=== PATIENT | female | born 1985 | race Caucasian/White ===

== ENCOUNTER 2017-07-14 20:10 | Emergency (ER) | payer MEDICAID ==
[~2017-07-14] VITALS: Ht 167.6 cm; Wt 72.6 kg
[2017-07-14 20:20] VITALS: BP 112/76
[2017-07-14 21:22] LABS: EOSINOPHILS % (AUTO) 1.5 % (0.0-3.0); LYMPHOCYTES % (AUTO) 29.7 % (20.0-45.0); MEAN CORPUSCULAR HGB CONC 34.3 G/DL (32.0-36.0); MEAN CORPUSCULAR VOLUME 99 FL (80-99); MEAN PLATELET VOLUME 7.7 FL (6.5-10.1); MONOCYTES % (AUTO) 6.7 % (1.0-10.0); NEUTROPHILS % (AUTO) 61.1 % (45.0-75.0); PLATELET COUNT 238 K/UL (150-450); RED BLOOD COUNT 4.04 M/UL (4.20-5.40); RED CELL DISTRIBUTION WIDTH 12.3 % (11.6-14.8); WHITE BLOOD COUNT 10.9 K/UL (4.8-10.8)
[2017-07-14 21:28] LABS: APPEARANCE,URINE CLEAR; KETONES,URINE NEGATIVE (NEGATIVE); LEUKOCYTE ESTERASE ,URINE 1+ (NEGATIVE); NITRITE,URINE NEGATIVE (NEGATIVE); PH,URINE 6 (4.5-8.0); PROTEIN,URINE NEGATIVE (NEGATIVE); UROBILINOGEN,URINE NORMAL MG/DL (0.0-1.0)
[2017-07-14 21:51] LABS: BACTERIA,URINE OCCASIONAL /HPF; RBC,URINE 0-2 /HPF (0 - 2); SQUAMOUS EPITHELIAL CELL,UR MANY /LPF (NONE/OCC); WBC,URINE 0-2 /HPF (0 - 2)
[2017-07-14 21:56] LABS: ACETAMINOPHEN < 10 ug/mL (10-30); ALANINE AMINOTRANSFERASE 24 U/L (3-33); ALBUMIN/GLOBULIN RATIO 1.6 (1.0-2.7); ALCOHOL < 10 mg/dL; ANION GAP 14 (5-15); ASPARTATE AMINO TRANSFERASE 23 U/L (5-40); CALCIUM 10.7 mg/dL (8.6-10.2); CARBON DIOXIDE 26 mEQ/L (20-30); CHLORIDE 99 mEQ/L (98-107); CREATININE 0.9 mg/dL (0.5-0.9); GLOMERULAR FILTRATION RATE > 60 mL/min (>60); HEMOLYSIS 0; POTASSIUM 3.4 mEQ/L (3.4-4.9); SODIUM 139 mEQ/L (135-145); TOTAL PROTEIN 7.6 g/dL (6.6-8.7)
--- NOTE | 2017-07-14 22:29 | Emergency Room Report ---
History of Present Illness General Chief Complaint: Behavioral Complaint Source: Patient Present Illness HPI 31-year-old female presents to ED for evaluation. Patient brought in by ambulance stating that she was to hurt herself. Tried to jump into traffic today the was pulled back by a bystander. Patient states she has history of depression but is not taking her medication in several months. Has been self- medicating with drugs and alcohol. Patient denies hearing voices. Patient states she is considered suicide in the past but has never attempted until today. She got very scared and called 911. Currently patient states she wants to hurt herself. Denies chest pain shortness of breath. No other aggravating relieving factors. Denies any other associated symptoms Allergies: Coded Allergies: No Known Allergies (Unverified , 07/14/17) Patient History Past Medical History: psych hx Past Surgical History: none Pertinent Family History: none Social History: Reports: alcohol use, drug use, Denies: smoking Last Menstrual Period: "doesnt get periods" Now: No Immunizations: UTD Reviewed Nursing Documentation: PMH: Agreed, PSxH: Agreed Nursing Documentation-PMH Past Medical History: No History, Except For History Of Psychiatric Problem: Yes - depression, anxiety,bipolar Review of Systems All Other Systems: negative except mentioned in HPI Physical Exam Vital Signs Date Time Temp Pulse Resp B/P (MAP) Pulse Ox O2 Delivery O2 Flow Rate FiO2 07/14/17 20:06 98.4 78 16 108/68 99 Room Air Sp02 EP Interpretation: reviewed, normal General Appearance: no apparent distress, alert, GCS 15, non-toxic Head: normocephalic, atraumatic Eyes: bilateral eye normal inspection, bilateral eye PERRL ENT: hearing grossly normal, normal pharynx, no angioedema, normal voice Neck: full range of motion, supple/symm/no masses Respiratory: chest non-tender, lungs clear, normal breath sounds, speaking full sentences Cardiovascular #1: regular rate, rhythm, no edema Cardiovascular #2: 2+ carotid (R), 2+ carotid (L), 2+ radial (R), 2+ radial (L) , 2+ dorsalis pedis (R), 2+ dorsalis pedis (L) Gastrointestinal: normal bowel sounds, non tender, soft, non-distended, no guarding, no rebound Rectal: deferred Genitourinary: normal inspection, no CVA tenderness Musculoskeletal: back normal, gait/station normal, normal range of motion, non- tender Neurologic: alert, oriented x3, responsive, motor strength/tone normal, sensory intact, speech normal Psychiatric: depressed affect, anxious Suicide Risk Assessment: Suicidal Ideation: Yes Had intent to initiate attempt: Yes Pt's plan for suicide attempt: Yes Has means to complete attempt: Yes Reflexes: 3+ bicep (R), 3+ bicep (L), 3+ tricep (R), 3+ tricep (L), 3+ knee (R) , 3+ knee (L) Skin: normal color, no rash, warm/dry, well hydrated Lymphatic: no adenopathy Medical Decision Making Diagnostic Impression: Primary Impression: Depression with suicidal ideation Additional Impression: Substance abuse ER Course Hospital Course 31-year-old female presents to ED for suicidal ideation. tried to jump into traffic today Differential diagnoses include: Major depressive disorder, unspecified psychosis , EtOH abuse, drug abuse Clinical course Patient placed on stretcher. On one to one observation. After initial history and physical I ordered labs, U. tox Labs-electrolytes normal, aspirin/Tylenol levels normal, EtOH level normal, U. tox +THC Patient is medically cleared and pending psychiatric evaluation. i. I feel this is a highly complex case requiring extensive working including EKG/Rhythm strip, Xray/CT/US, Blood/urine lab work, repeat exams while in ED, and administration of strong opiates/narcotics for pain control, admission to hospital or close patient follow up. Labs Test 07/14/17 21:00 White Blood Count 10.9 K/UL (4.8-10.8) Red Blood Count 4.04 M/UL (4.20-5.40) Hemoglobin 13.7 G/DL (12.0-16.0) Hematocrit 40.1 % (37.0-47.0) Mean Corpuscular Volume 99 FL (80-99) Mean Corpuscular Hemoglobin 34.0 PG (27.0-31.0) Mean Corpuscular Hemoglobin Concent 34.3 G/DL (32.0-36.0) Red Cell Distribution Width 12.3 % (11.6-14.8) Platelet Count 238 K/UL (150-450) Mean Platelet Volume 7.7 FL (6.5-10.1) Neutrophils (%) (Auto) 61.1 % (45.0-75.0) Lymphocytes (%) (Auto) 29.7 % (20.0-45.0) Monocytes (%) (Auto) 6.7 % (1.0-10.0) Eosinophils (%) (Auto) 1.5 % (0.0-3.0) Basophils (%) (Auto) 1.0 % (0.0-2.0) Urine Color Pale yellow Urine Appearance Clear Urine pH 6 (4.5-8.0) Urine Specific [place] 1.010 (1.005-1.035) Urine Protein Negative (NEGATIVE) Urine Glucose (UA) Negative (NEGATIVE) Urine Ketones Negative (NEGATIVE) Urine Occult Blood Negative (NEGATIVE) Urine Nitrite Negative (NEGATIVE) Urine Bilirubin Negative (NEGATIVE) Urine Urobilinogen Normal MG/DL (0.0-1.0) Urine Leukocyte Esterase 1+ (NEGATIVE) Urine RBC 0-2 /HPF (0 - 2) Urine WBC 0-2 /HPF (0 - 2) Urine Squamous Epithelial Cells Many /LPF (NONE/OCC) Urine Bacteria Occasional /HPF (NONE) Urine HCG, Qualitative Negative Sodium Level 139 mEQ/L (135-145) Potassium Level 3.4 mEQ/L (3.4-4.9) Chloride Level 99 mEQ/L (98-107) Carbon Dioxide Level 26 mEQ/L (20-30) Anion Gap 14 (5-15) Blood Urea Nitrogen 11 mg/dL (7-23) Creatinine 0.9 mg/dL (0.5-0.9) Estimat Glomerular Filtration Rate > 60 mL/min (>60) Glucose Level 90 mg/dL (74-106) Calcium Level 10.7 mg/dL (8.6-10.2) Total Bilirubin 0.4 mg/dL (0.0-1.2) Aspartate Amino Transf (AST/SGOT) 23 U/L (5-40) Alanine Aminotransferase (ALT/SGPT) 24 U/L (3-33) Alkaline Phosphatase 49 U/L (35-104) Total Protein 7.6 g/dL (6.6-8.7) Albumin 4.7 g/dL (3.5-5.2) Globulin 2.9 g/dL Albumin/Globulin Ratio 1.6 (1.0-2.7) Salicylates Level < 1 mg/dL (10-30) Urine Opiates Screen Negative (NEGATIVE) Acetaminophen Level < 10 ug/mL (10-30) Urine Barbiturates Screen Negative (NEGATIVE) Phencyclidine (PCP) Screen Negative (NEGATIVE) Urine Amphetamines Screen Negative (NEGATIVE) Urine Benzodiazepines Screen Negative (NEGATIVE) Urine Cocaine Screen Negative (NEGATIVE) Urine Marijuana (THC) Screen Positive (NEGATIVE) Serum Alcohol < 10 mg/dL Last Vital Signs Date Time Temp Pulse Resp B/P (MAP) Pulse Ox O2 Delivery O2 Flow Rate FiO2 07/14/17 20:06 98.4 78 16 108/68 99 Room Air Status: improved Disposition: XFER SHT-TRM HOSP Condition: Serious IBRAHIMA FLORES M.D. Jul 14, 2017 22:29
[2017-07-14 22:30] VITALS: BP 118/76
[2017-07-15] VITALS (7 sets, daily range): BP systolic 114–127; BP diastolic 69–78
[2017-07-15] MEDS ORDERED: NKM (00:25)
--- NOTE | 2017-07-15 12:50 | Consultation ---
Consultation HPI 31 yo female with hx of mdd and alcohol use admitted to er with amanda hannon with intention to od the pt stated that she has been suffering from depression last seen a psychiatrist 2 years ago and has not been on meds. she has been self medicating with meth and alcohol/ family are distant and dishonored her. her family would not assist her. 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 the pt has cluster b traits and is labile. target sxs: irritable mood, anxiety, decrease energy, poor sleep, suicidal ideation. Allergies: Coded Allergies: No Known Allergies (Unverified , 07/14/17) Past Medical History none General Appearance: Fairly Groomed, Stated Age Orientation: Time, Place, Person, Situation Attention Span Description: Good Mood/Memory: Angry Affect: Full Range Thought Process: Linear Thought Content: Suicidal Ideation Speech: Normal in Volume & Rate Intelligence: Average Insight/ Judgement: Fair Impulse Control: Fair Assessment/Plan Status: not improved Assessment/Plan mdd. imminent dts -transfer to psych -voluntary Magaly Kee M.D. Jul 15, 2017 12:50
[2017-07-15] MEDS ORDERED: LORazepam 1mg tab ORAL ONE (14:00)
== END 2017-07-15 15:51 | disposition short-term general hospital (02) ==
LOC: EDBD 20:10 → EMR 20:29
DX: F32.9 Major depressive disorder, single episode, unspecified (principal); R45.851 Suicidal ideations; F19.10 Other psychoactive substance abuse, uncomplicated; F41.9 Anxiety disorder, unspecified
CPT/HCPCS: 36415; 80053; 80300; 80329; 81003; 81025; 85025; 99285

== ENCOUNTER 2017-07-22 14:36 | Emergency (ER) | payer MEDICAID ==
[~2017-07-22] VITALS: Ht 167.6 cm; Wt 72.6 kg
[~2017-07-22 14:36] MED LIST: NKM
[2017-07-22] MEDS ORDERED: LORazepam 1mg tab ORAL ONE (15:45)
[2017-07-22 16:33] LABS: BASOPHILS % (AUTO) 1.4 % (0.0-2.0); EOSINOPHILS % (AUTO) 0.5 % (0.0-3.0); MEAN CORPUSCULAR HGB CONC 34.7 G/DL (32.0-36.0); MEAN CORPUSCULAR VOLUME 98 FL (80-99); MEAN PLATELET VOLUME 7.9 FL (6.5-10.1); MONOCYTES % (AUTO) 5.9 % (1.0-10.0); NEUTROPHILS % (AUTO) 70.1 % (45.0-75.0); PLATELET COUNT 253 K/UL (150-450); RED BLOOD COUNT 4.24 M/UL (4.20-5.40); RED CELL DISTRIBUTION WIDTH 12.2 % (11.6-14.8); WHITE BLOOD COUNT 7.9 K/UL (4.8-10.8)
[2017-07-22 16:49] LABS: ACETAMINOPHEN < 10 ug/mL (10-30); ALANINE AMINOTRANSFERASE 23 U/L (3-33); ALBUMIN/GLOBULIN RATIO 1.7 (1.0-2.7); ALCOHOL < 10 mg/dL; ANION GAP 14 (5-15); ASPARTATE AMINO TRANSFERASE 21 U/L (5-40); CALCIUM 9.2 mg/dL (8.6-10.2); CARBON DIOXIDE 25 mEQ/L (20-30); CHLORIDE 102 mEQ/L (98-107); CREATININE 0.8 mg/dL (0.5-0.9); GLOMERULAR FILTRATION RATE > 60 mL/min (>60); HEMOLYSIS 7; POTASSIUM 3.9 mEQ/L (3.4-4.9); SODIUM 141 mEQ/L (135-145); TOTAL PROTEIN 7.8 g/dL (6.6-8.7)
[2017-07-22 17:30] VITALS: BP 108/71
[2017-07-22 19:30] VITALS: BP 110/75
[2017-07-22 22:35] VITALS: BP 112/76
--- NOTE | 2017-07-22 22:47 | Emergency Room Report ---
History of Present Illness General Chief Complaint: Behavioral Complaint Source: Patient (Dyan Olivares) Present Illness HPI 31-year-old female presents to the emergency department complaining of increasing her depression and having suicidal ideations due to her persistent anxiety attacks. Patient states that she was released from psychiatric hospital on Geodon and Vistaril. Patient states that she continues to have increased anxiety and believes that her anxiety is in fact worsened by these medications. Patient states that she is having multiple attacks per day and feeling overwhelmed as if she cannot breathe. Patient states that she began having thoughts of taking all of her medications so she came to the emergency department for evaluation and perhaps change of medications. She reports one prior suicide attempt which was earlier this month. Patient states that she has been taking medications as prescribed except for taking Geodon today. Patient does report marijuana use. Patient denies use of other illicit drugs. Patient also reports EtOH use. Patient reports family history of depression. Patient denies intent to harm others. Patient denies manic symptoms, history of trauma, auditory or visual hallucinations. Denies CP, Palpitations, LOC, AMS , dizziness, Changes in Vision, Sensation, paresthesias, or a sudden severe headache. (Dyan Olivares) Allergies: Coded Allergies: No Known Allergies (Unverified , 07/14/17) Patient History Past Medical History: see triage record, psych hx Past Surgical History: none Pertinent Family History: none Last Menstrual Period: bcp Now: No Immunizations: UTD Reviewed Nursing Documentation: PMH: Agreed, PSxH: Agreed (Dyan Olivares) Nursing Documentation-PMH Past Medical History: No History, Except For History Of Psychiatric Problem: Yes - bipolar, depression, anxiety (Dyan Olivares) Review of Systems All Other Systems: negative except mentioned in HPI (Dyan Olivares) Physical Exam Vital Signs Date Time Temp Pulse Resp B/P (MAP) Pulse Ox O2 Delivery O2 Flow Rate FiO2 07/22/17 14:43 98.4 97 18 113/62 98 Room Air Sp02 EP Interpretation: reviewed, normal General Appearance: no apparent distress, alert, GCS 15, non-toxic Head: normocephalic, atraumatic Eyes: bilateral eye normal inspection, bilateral eye PERRL ENT: hearing grossly normal, normal voice Neck: full range of motion Respiratory: lungs clear, normal breath sounds, speaking full sentences Cardiovascular #1: regular rate, rhythm Gastrointestinal: normal bowel sounds, non tender, soft, no guarding, no rebound Rectal: deferred Genitourinary: normal inspection, no CVA tenderness Musculoskeletal: back normal, gait/station normal, normal range of motion, non- tender Neurologic: alert, oriented x3, responsive, motor strength/tone normal, sensory intact, cerebellar normal, normal gait, speech normal Psychiatric: judgement/insight normal, memory normal, depressed affect - pt is tearful on occasion., anxious - pt. is restless, Skin: normal color, no rash, warm/dry, well hydrated Lymphatic: no adenopathy (Dyan Olivares) Medical Decision Making PA Attestation Dr. Xiong is my supervising Physician whom patient management has been discussed with. (Dyan Olivares) Diagnostic Impression: Primary Impression: Behavioral disorder ER Course 31-year-old female presents to the emergency department complaining of increasing her depression and having suicidal ideations due to her persistent anxiety attacks. Patient states that she was released from psychiatric hospital on Geodon and Vistaril. Patient states that she continues to have increased anxiety and believes that her anxiety is in fact worsened by these medications. Patient states that she is having multiple attacks per day and feeling overwhelmed as if she cannot breathe. Patient states that she began having thoughts of taking all of her medications so she came to the emergency department for evaluation and perhaps change of medications. She reports one prior suicide attempt which was earlier this month. Patient states that she has been taking medications as prescribed except for taking Geodon today. Patient does report marijuana use. Patient denies use of other illicit drugs. Patient also reports EtOH use. Patient reports family history of depression. Patient denies intent to harm others. Patient denies manic symptoms, history of trauma, auditory or visual hallucinations. Denies CP, Palpitations, LOC, AMS , dizziness, Changes in Vision, Sensation, paresthesias, or a sudden severe headache. Pt has depressed affect with intermittent tearfulness. pt. also demonstrates anxiety and restlessness. Ddx considered but are not limited to OD, SI/HI, psychosis, UTI, intoxication Vital signs: are WNL, pt. is afebrile H&PE are most consistent with behavioral/mental health issue: anxiety and depression. ORDERS: -CBC, CMP -UA: negative for infection see results attached. -UDS: Positive for THC. -Salicylates and Acetaminophen - no acute intoxication. ED INTERVENTIONS: - 1mg Ativan PO - 1 mg Risperdal PO DISPOSITION: Pt. has been cleared medically and is awaiting psychiatric consult. -Pt. will possibly to to [facility] on voluntary basis. Labs Test 07/22/17 14:53 07/22/17 15:56 Urine Opiates Screen Negative (NEGATIVE) Urine Barbiturates Screen Negative (NEGATIVE) Phencyclidine (PCP) Screen Negative (NEGATIVE) Urine Amphetamines Screen Negative (NEGATIVE) Urine Benzodiazepines Screen Negative (NEGATIVE) Urine Cocaine Screen Negative (NEGATIVE) Urine Marijuana (THC) Screen Positive (NEGATIVE) White Blood Count 7.9 K/UL (4.8-10.8) Red Blood Count 4.24 M/UL (4.20-5.40) Hemoglobin 14.4 G/DL (12.0-16.0) Hematocrit 41.5 % (37.0-47.0) Mean Corpuscular Volume 98 FL (80-99) Mean Corpuscular Hemoglobin 34.0 PG (27.0-31.0) Mean Corpuscular Hemoglobin Concent 34.7 G/DL (32.0-36.0) Red Cell Distribution Width 12.2 % (11.6-14.8) Platelet Count 253 K/UL (150-450) Mean Platelet Volume 7.9 FL (6.5-10.1) Neutrophils (%) (Auto) 70.1 % (45.0-75.0) Lymphocytes (%) (Auto) 22.0 % (20.0-45.0) Monocytes (%) (Auto) 5.9 % (1.0-10.0) Eosinophils (%) (Auto) 0.5 % (0.0-3.0) Basophils (%) (Auto) 1.4 % (0.0-2.0) Sodium Level 141 mEQ/L (135-145) Potassium Level 3.9 mEQ/L (3.4-4.9) Chloride Level 102 mEQ/L (98-107) Carbon Dioxide Level 25 mEQ/L (20-30) Anion Gap 14 (5-15) Blood Urea Nitrogen 10 mg/dL (7-23) Creatinine 0.8 mg/dL (0.5-0.9) Estimat Glomerular Filtration Rate > 60 mL/min (>60) Glucose Level 94 mg/dL (74-106) Calcium Level 9.2 mg/dL (8.6-10.2) Total Bilirubin < 0.2 mg/dL (0.0-1.2) Aspartate Amino Transf (AST/SGOT) 21 U/L (5-40) Alanine Aminotransferase (ALT/SGPT) 23 U/L (3-33) Alkaline Phosphatase 53 U/L (35-104) Total Protein 7.8 g/dL (6.6-8.7) Albumin 5.0 g/dL (3.5-5.2) Globulin 2.8 g/dL Albumin/Globulin Ratio 1.7 (1.0-2.7) Salicylates Level < 1 mg/dL (10-30) Acetaminophen Level < 10 ug/mL (10-30) Serum Alcohol < 10 mg/dL (Dyan Olviares P.AAlen) ER Course See above evaluation by Ms. Olivares. Patient slept through night. In am states still feels awful - anxious and heart pounding. I offered usual meds and she agreed. Then she refused Geodon as "it doesn't work". Lexapro given. Dr. Kee evaluated patient and felt safe to d/c with meds (Lexapro and Remeron). Patient stable for outpatient observation and treatment. (Derick López M.D.) Last Vital Signs Date Time Temp Pulse Resp B/P (MAP) Pulse Ox O2 Delivery O2 Flow Rate FiO2 07/22/17 17:30 98.9 64 18 108/71 98 Room Air (Dyan Olivares P.A.) Last Vital Signs Date Time Temp Pulse Resp B/P (MAP) Pulse Ox O2 Delivery O2 Flow Rate FiO2 07/23/17 11:51 97.7 71 17 107/70 100 Room Air Status: improved (Derick López M.D.) Disposition: HOME, SELF-CARE Condition: Improved Scripts Mirtazapine* (REMERON*) 15 Mg Tablet 7.5 MG ORAL BEDTIME, #15 TAB take 1/2 tab of 15 mg tablet at night for sleep. Prov: Derick óLpez M.D. 07/23/17 Escitalopram Oxalate* (LEXAPRO*) 10 Mg Tablet 10 MG ORAL DAILY, #30 TAB Prov: Deirck López M.D. 07/23/17 Referrals: MARÍAREFERRING (PCP) Dyan Olivares Jul 22, 2017 22:47 Derick López M.D. Jul 23, 2017 11:03
[2017-07-23 01:00] VITALS: BP 110/68
[2017-07-23 05:24] VITALS: BP 108/72
[2017-07-23] MEDS ORDERED: Ziprasidone 20mg cap ORAL ONE (09:00)
[2017-07-23] MEDS ORDERED: LORazepam 1mg tab ORAL ONE (09:00)
--- NOTE | 2017-07-23 10:28 | Consultation ---
History of Present Illness General Chief Complaint: Behavioral Complaint Present Illness HPI 31-year-old female presents to the emergency department complaining of increasing her depression,and anxiety. the pt came and stated that she is suicidal. the pt is well known to this MD. the pt came last week we transferred the pt to [facility]. the pt did not have a good experience with [facility] and does not want to go there. the pt is not endorsing suicidal ideation. the pt stated that she has relapsed on drugs and alcohol. the pt stated that at [facility] she did not see a psychiatrist and only saw an [employer]ACT[employer] SUPERVISOR. Sulaiman diagnosed her with bipolar d/o and gave her geodone which made her worse. the pt was given risperdal and lexapro. the pt is feeling better. the pt has anxiety and insomnia. the pt has future oriented thought process. the pt stated that "I need to get better and move one." Allergies: Coded Allergies: No Known Allergies (Unverified , 07/14/17) Medication History Scheduled No Known Medications* (NKM - No Known Medications*), 0 ., (Reported) Patient History History Provided By: Patient, Medical Record, PMD Healthcare decision maker Resuscitation status Advanced Directive on File Past Medical/Surgical History Past Medical/Surgical History: (1) Behavioral disorder Review of Systems Psychiatric: Reports: prior hx, anxiety, depressed feelings, emotional problems Physical Exam General Appearance: no apparent distress, alert Neurologic: alert, oriented x 3, responsive, depressed affect Last 24 Hour Vital Signs Date Time Temp Pulse Resp B/P (MAP) Pulse Ox O2 Delivery O2 Flow Rate FiO2 07/23/17 05:24 97.7 74 18 108/72 100 Room Air 07/23/17 01:00 97.7 71 18 110/68 100 Room Air 07/22/17 22:35 97.6 85 18 112/76 100 Room Air 07/22/17 19:30 98.2 72 16 110/75 99 Room Air 07/22/17 17:30 98.9 64 18 108/71 98 Room Air 07/22/17 14:43 98.4 97 18 113/62 98 Room Air Laboratory Tests Test 07/22/17 14:53 07/22/17 15:56 Urine Opiates Screen Negative (NEGATIVE) Urine Barbiturates Screen Negative (NEGATIVE) Phencyclidine (PCP) Screen Negative (NEGATIVE) Urine Amphetamines Screen Negative (NEGATIVE) Urine Benzodiazepines Screen Negative (NEGATIVE) Urine Cocaine Screen Negative (NEGATIVE) Urine Marijuana (THC) Screen Positive (NEGATIVE) H White Blood Count 7.9 K/UL (4.8-10.8) Red Blood Count 4.24 M/UL (4.20-5.40) Hemoglobin 14.4 G/DL (12.0-16.0) Hematocrit 41.5 % (37.0-47.0) Mean Corpuscular Volume 98 FL (80-99) Mean Corpuscular Hemoglobin 34.0 PG (27.0-31.0) H Mean Corpuscular Hemoglobin Concent 34.7 G/DL (32.0-36.0) Red Cell Distribution Width 12.2 % (11.6-14.8) Platelet Count 253 K/UL (150-450) Mean Platelet Volume 7.9 FL (6.5-10.1) Neutrophils (%) (Auto) 70.1 % (45.0-75.0) Lymphocytes (%) (Auto) 22.0 % (20.0-45.0) Monocytes (%) (Auto) 5.9 % (1.0-10.0) Eosinophils (%) (Auto) 0.5 % (0.0-3.0) Basophils (%) (Auto) 1.4 % (0.0-2.0) Sodium Level 141 mEQ/L (135-145) Potassium Level 3.9 mEQ/L (3.4-4.9) Chloride Level 102 mEQ/L (98-107) Carbon Dioxide Level 25 mEQ/L (20-30) Anion Gap 14 (5-15) Blood Urea Nitrogen 10 mg/dL (7-23) Creatinine 0.8 mg/dL (0.5-0.9) Estimat Glomerular Filtration Rate > 60 mL/min (>60) Glucose Level 94 mg/dL (74-106) Calcium Level 9.2 mg/dL (8.6-10.2) Total Bilirubin < 0.2 mg/dL (0.0-1.2) Aspartate Amino Transf (AST/SGOT) 21 U/L (5-40) Alanine Aminotransferase (ALT/SGPT) 23 U/L (3-33) Alkaline Phosphatase 53 U/L (35-104) Total Protein 7.8 g/dL (6.6-8.7) Albumin 5.0 g/dL (3.5-5.2) Globulin 2.8 g/dL Albumin/Globulin Ratio 1.7 (1.0-2.7) Salicylates Level < 1 mg/dL (10-30) L Acetaminophen Level < 10 ug/mL (10-30) L Serum Alcohol < 10 mg/dL Height (Feet): 5 Height (Inches): 6.00 Weight (Pounds): 160 Medications Current Medications Medications (Trade) Dose Ordered Sig/Bianca Route PRN Reason Start Time Stop Time Status Last Admin Dose Admin Risperidone (RisperDAL) 1 mg DAILY ORAL 07/22/17 19:15 08/21/17 19:14 07/22/17 19:41 Assessment/Plan Status: stable Assessment/Plan Anxiety d/o not a dts/dto -the pt will be discharged -lexapro 10mg -remeron 7.5mg qhs -the pt was given script Magaly Kee M.D. Jul 23, 2017 10:28
[2017-07-23] MEDS ORDERED: MIRTAZAPINE15 MG ORAL (11:06)
[2017-07-23] MEDS ORDERED: LEXAPRO10 MG ORAL (11:06)
[2017-07-23 11:31] VITALS: BP 107/70
[2017-07-23 11:51] VITALS: BP 107/70
== END 2017-07-23 12:00 | disposition home or self-care (01) ==
LOC: EMR 16:20
DX: F68.8 Other specified disorders of adult personality and behavior (principal); F32.9 Major depressive disorder, single episode, unspecified; R45.851 Suicidal ideations; F41.9 Anxiety disorder, unspecified; F31.9 Bipolar disorder, unspecified; F12.90 Cannabis use, unspecified, uncomplicated
CPT/HCPCS: 36415; 80053; 80300; 80329; 85025; 99284

== ENCOUNTER 2017-10-04 22:45 | Emergency (ER) | payer MEDICAID ==
[~2017-10-04] VITALS: Ht 170.2 cm; Wt 72.6 kg
[~2017-10-04 22:45] MED LIST changes: +LEXAPRO10 MG ORAL; +MIRTAZAPINE15 MG ORAL
--- NOTE | 2017-10-05 00:02 | Emergency Room Report ---
History of Present Illness General Chief Complaint: Alcohol Intoxication Source: Patient Present Illness HPI 32-year-old female walked in with complaints of "I need help for alcohol abuse and drug abuse." Patient also endorses using meth a few days ago. States she is very depressed, has a lot of anxiety and has thoughts of hurting herself. Patient unclear as to specifics as how she would hurt herself today. She was seen here 2 times previously in the ER for similar complaints. She was started on Lexapro at 1 point - he states that Lexapro helped remove considerably however was told by another psychiatrist that Lexapro could precipitate a manic episode and her so she stopped taking. She denies other medical problems or medications. Allergies: Coded Allergies: No Known Allergies (Unverified , 07/14/17) Patient History Past Medical History: psych hx Past Surgical History: none Pertinent Family History: none Social History: Denies: smoking, alcohol use, drug use Now: No Immunizations: UTD Reviewed Nursing Documentation: PMH: Agreed Nursing Documentation-PMH Past Medical History: No History, Except For Review of Systems All Other Systems: negative except mentioned in HPI Physical Exam Vital Signs Date Time Temp Pulse Resp B/P (MAP) Pulse Ox O2 Delivery O2 Flow Rate FiO2 10/04/17 22:57 97.0 89 17 130/78 98 Room Air Sp02 EP Interpretation: reviewed, normal General Appearance: normal inspection, well appearing, no apparent distress, alert, GCS 15, non-toxic Head: normocephalic, atraumatic Eyes: bilateral eye PERRL, bilateral eye EOMI ENT: normal ENT inspection, hearing grossly normal, normal voice Neck: normal inspection, full range of motion, supple, no bony tend Respiratory: normal inspection, lungs clear, normal breath sounds, no respiratory distress, no retraction, no wheezing Cardiovascular #1: regular rate, rhythm, no edema Gastrointestinal: normal inspection, normal bowel sounds, non tender, soft, no guarding, no hernia Genitourinary: no CVA tenderness Musculoskeletal: normal inspection, back normal, normal range of motion, Leah' s Sign negative Neurologic: normal inspection, alert, responsive, speech normal Psychiatric: normal inspection, judgement/insight normal, memory normal, mood/ affect normal, depressed affect, anxious, other - emotionally labile Skin: normal inspection, normal color, no rash Medical Decision Making Diagnostic Impression: Primary Impression: Acute alcoholic intoxication Qualified Codes: F10.929 - Alcohol use, unspecified with intoxication, unspecified Additional Impressions: Marijuana abuse Suicidal ideation ER Course Alcohol level 212I, urine tox positive for marijuana H&H stable, no leukocytosis or other metabolic abnormalities. Urine negative patient medically cleared for psychiatric evaluation We will start the process for psychiatric placement Last Vital Signs Date Time Temp Pulse Resp B/P (MAP) Pulse Ox O2 Delivery O2 Flow Rate FiO2 10/04/17 22:57 97.0 89 17 130/78 98 Room Air Status: improved Disposition: XFER TO PSYCH HOSP/UNIT Referrals: NOT CHOSEN JACOB/,REFERRING (PCP) KIMBERLY FROST M.D. Oct 05, 2017 00:02
[2017-10-05 00:27] LABS: BASOPHILS % (AUTO) 1.2 % (0.0-2.0); EOSINOPHILS % (AUTO) 1.8 % (0.0-3.0); LYMPHOCYTES % (AUTO) 36.4 % (20.0-45.0); MEAN CORPUSCULAR HEMOGLOBIN 31.8 PG (27.0-31.0); MEAN CORPUSCULAR HGB CONC 32.6 G/DL (32.0-36.0); MEAN CORPUSCULAR VOLUME 98 FL (80-99); MONOCYTES % (AUTO) 6.1 % (1.0-10.0); NEUTROPHILS % (AUTO) 54.4 % (45.0-75.0); PLATELET COUNT 257 K/UL (150-450); RED BLOOD COUNT 4.79 M/UL (4.20-5.40); RED CELL DISTRIBUTION WIDTH 12.6 % (11.6-14.8); WHITE BLOOD COUNT 7.6 K/UL (4.8-10.8)
[2017-10-05 00:38] LABS: ANION GAP 12 mmol/L (5-15); CALCIUM 8.9 MG/DL (8.5-10.1); CARBON DIOXIDE 26 MMOL/L (21-32); CHLORIDE 106 MMOL/L (98-107); CREATININE 0.7 MG/DL (0.55-1.30); GLOMERULAR FILTRATION RATE > 60 mL/min (>60); POTASSIUM 3.7 MMOL/L (3.5-5.1); SODIUM 144 MMOL/L (136-145)
[2017-10-05 00:43] LABS: ALANINE AMINOTRANSFERASE 40 U/L (12-78); ALBUMIN/GLOBULIN RATIO 1.1 (1.0-2.7); ALCOHOL 212 mg/dL; ASPARTATE AMINO TRANSFERASE 29 U/L (15-37); TOTAL PROTEIN 8.5 G/DL (6.4-8.2)
[2017-10-05 00:48] LABS: ACETAMINOPHEN < 2 MCG/ML (10-30)
[2017-10-05 08:50] VITALS: BP 116/76
[2017-10-05] MEDS ORDERED: VISTARIL25 M1 PO (10:26)
[2017-10-05] MEDS ORDERED: ZOFRAN ODT4 MG ORAL (10:27)
[2017-10-05] MEDS ORDERED: PEPCID20 MG ORAL (10:27)
[2017-10-05 10:30] VITALS: BP 121/84
== END 2017-10-05 10:30 | disposition home or self-care (01) ==
LOC: EMR 23:45
DX: F10.129 Alcohol abuse with intoxication, unspecified (principal); R45.851 Suicidal ideations; F12.10 Cannabis abuse, uncomplicated
CPT/HCPCS: 36415; 80053; 80307; 80329; 81025; 85025; 99285